=== PATIENT | female | born 1970 | race Caucasian/White ===

== ENCOUNTER 2016-10-20 05:10 | Inpatient (IN) | payer OTHER ==
[~2016-10-20] VITALS: Ht 165.1 cm; Wt 97.1 kg
[2016-10-20] MEDS ORDERED: ASPIRIN 81 MG CHEW PO STA (05:24)
[2016-10-20] MEDS: NITROGLYCERIN 0.4 MG SL PER TAB CHARGE SL PRN ×2 (05:32→05:43)
[2016-10-20 05:40] LABS: BASO % 0.3 %; BASO ABS # 0.02 K/uL (0-0.2); COMPLETE YES; EOS % 1.9 %; HEMATOCRIT 42.4 % (37-47); IG% 0.1 %; LYMPH % 24.6 %; LYMPH ABS # 1.82 K/uL (1.2-3.4); MEAN CELL VOLUME 88.5 fL (80-100); MEAN CORPUSCULAR HEMOGLOBIN 30.7 pg (25-34); MEAN CORPUSCULAR HGB CONC 34.7 g/dl (32-36); MEAN PLATELET VOLUME 9.9 fL (7.4-10.4); MONO % 8.8 %; NEUT % 64.3 %; PLATELET COUNT 247 K/uL (130-400); RED BLOOD COUNT 4.79 M/uL (4.2-5.4)
[2016-10-20] MEDS ORDERED: FLUT0.15 NAE (05:43)
[2016-10-20] MEDS ORDERED: VNTHFA/IN INH (05:44)
[2016-10-20] MEDS ORDERED: allergy shots INJ (05:45)
[2016-10-20] MEDS ORDERED: NIAC50TA9 PO (05:47)
[2016-10-20] MEDS ORDERED: CYAN1LOZ PO (05:47)
[2016-10-20] MEDS ORDERED: CHONCAP PO (05:49)
[2016-10-20] MEDS ORDERED: MONT1TAB3 PO (05:50)
[2016-10-20] MEDS ORDERED: FERR28TA2 PO (05:50)
[2016-10-20] MEDS ORDERED: ROPI1TAB PO (05:51)
[2016-10-20] MEDS ORDERED: CALC500C70 PO (05:52)
[2016-10-20] MEDS ORDERED: SODIUM CHLORIDE 0.9% 250ML 250 ML IV STA (05:54)
[2016-10-20 06:02] LABS: ALT/SGPT 25 U/L (12-78); AST/SGOT 11 U/L (15-37); BLOOD UREA NITROGEN 13 mg/dl (7-18); BUN/CREATININE RATIO 17.5 (10-20); CHLORIDE 108 mmol/L (98-107); CREATININE 0.73 mg/dl (0.60-1.20); GLUCOSE 111 mg/dl (70-99); POTASSIUM 3.9 mmol/L (3.5-5.1); SODIUM 143 mmol/L (136-145)
[2016-10-20 06:06] LABS: ALKALINE PHOSPHATASE 58 U/L (45-117); CARBON DIOXIDE 23 mmol/L (21-32)
--- NOTE | 2016-10-20 06:14 | EMERGENCY ROOM VISIT NOTE ---
History First contact with patient: 05:13 Chief Complaint: CHEST PAIN Stated Complaint: CHEST PAIN Nursing Triage Summary: Pt woke up at 3 am with left sided chest pain. Pt reports she has had intermittent chest pain for some time. History of Present Illness The patient is a 46 year old female who presents to the Emergency Room with complaints of left-sided chest pain described as aching, ranging in severity currently 4 out of 10 that woke her up out of sleep at 3 AM that is constant. This pain does not radiate. Walking up steps makes it worse. Patient states yesterday she had intermittent chest pain. Patient states many years ago she had a normal stress test. Patient denies fever, chills, cough, congestion, dyspnea, nausea, vomiting, diarrhea, diaphoresis, leg pain or swelling. Patient states she's extended the family history of heart disease. Patient denies diabetes, blood pressure, tobacco use, cholesterol. No recent travel. She does not smoke. Review of Systems See HPI for pertinent positives & negatives. A total of 10 systems reviewed and were otherwise negative. Past Medical/Surgical History Asthma Social History Smoking Status: Never Smoker Smokeless Tobacco Use: No Alcohol Use: none Drug Use: none Marital Status: Housing Status: lives with family Current/Historical Medications Scheduled Calcium/Vitamin D (Os-Jean-Pierre 500 Plus D), 1 TAB PO DAILY Chondroitin Sulfate-Vitamin C- (Chondroitin Sulfate), 1 CAP PO DAILY Cyanocobalamin (Vitamin B 12), Unknown Dose PO DIRECTED Ferrous Sulfate (Iron), 28 MG PO DAILY Fluticasone Propionate (Nasal) (Flonase Allergy Relief), 1 SPRAY NEAL DAILY Montelukast Sodium (Singulair), 10 MG PO DAILY Niacin (Niacin), Unknown Dose PO DAILY Ropinirole (Requip), Unknown Dose PO DIRECTED [allergy shots], 1 DOSE INJ MONTHLY Scheduled PRN Albuterol Hfa (Ventolin Hfa), 2 PUFFS INH DIRECTED PRN for SOB/Wheezing Allergies Coded Allergies: Iodine (Verified Allergy, Mild, Rash, 10/20/16) Uncoded Allergies: PENICILLIN (Allergy, Mild, Rash, 10/20/16) SULFA (Allergy, Mild, Rash, 10/20/16) Physical Exam Vital Signs Date Time Temp Pulse Resp B/P Pulse Ox O2 Delivery O2 Flow Rate FiO2 10/20/16 06:00 79 16 122/79 93 Room Air 10/20/16 05:53 77 16 103/56 93 Room Air 10/20/16 05:42 88 16 140/87 95 10/20/16 05:32 105 16 157/103 97 10/20/16 05:30 96 10/20/16 05:21 96 Room Air 10/20/16 05:21 96 Room Air 10/20/16 05:21 96 Room Air 10/20/16 05:12 37.0 93 16 171/98 97 Room Air Physical Exam VITALS: Vitals are noted on the nurse's note and reviewed by myself. Vital signs hypertensive GENERAL: Pleasant female, in no acute distress, nondiaphoretic, well-developed well-nourished. SKIN: The skin was without rashes, erythema, edema, or bruising. There is no tenting of the skin. Capillary reflex less than 2 seconds. HEAD: Normocephalic atraumatic. EARS: External auditory canals clear, tympanic membranes pearly mcdonough without erythema or effusion bilaterally. EYES: Pupils equal round and reactive to light and accommodation. Conjunctivae without injection, sclerae without icterus. Extraocular movements intact. NOSE: Patent, turbinates without inflammation or discharge. MOUTH: Mucous membranes moist. Pharynx without erythema or exudate. Uvula midline. Airway patent. Tongue does not deviate. NECK: Supple without nuchal rigidity. No lymphadenopathy. No thyromegaly. Cervical spine is nontender. No JVD. HEART: Regular rate and rhythm without murmurs gallops or rubs. Chest nontender to palpation LUNGS: Clear to auscultation bilaterally without wheezes, rales or rhonchi. No dullness to percussion. No retractions or accessory muscle use. ABDOMEN: Positive bowel sounds x 4. Normal tympanic percussion. Soft, nontender, without masses or organomegaly. Santamaria sign negative. No guarding or rebound tenderness. MUSCULOSKELETAL: No muscle atrophy, erythema, or edema noted. NEURO: Patient was alert and oriented to person place and time. Normal sensation to light and sharp touch. No focal neurological deficits. Medical Decision & Procedures Laboratory Results 10/20/16 05:25 Red Blood Count 4.79, Mean Corpuscular Volume 88.5, Mean Corpuscular Hemoglobin 30.7, Mean Corpuscular Hemoglobin Concent 34.7, Mean Platelet Volume 9.9, Neutrophils (%) (Auto) 64.3, Lymphocytes (%) (Auto) 24.6, Monocytes (%) (Auto) 8.8, Eosinophils (%) (Auto) 1.9, Basophils (%) (Auto) 0.3, Neutrophils # (Auto) 4.76, Lymphocytes # (Auto) 1.82, Monocytes # (Auto) 0.65, Eosinophils # (Auto) 0.14, Basophils # (Auto) 0.02 10/20/16 05:25 Test 10/20/16 05:25 10/20/16 05:30 White Blood Count 7.40 K/uL (4.8-10.8) Red Blood Count 4.79 M/uL (4.2-5.4) Hemoglobin 14.7 g/dL (12.0-16.0) Hematocrit 42.4 % (37-47) Mean Corpuscular Volume 88.5 fL (80-100) Mean Corpuscular Hemoglobin 30.7 pg (25-34) Mean Corpuscular Hemoglobin Concent 34.7 g/dl (32-36) Platelet Count 247 K/uL (130-400) Mean Platelet Volume 9.9 fL (7.4-10.4) Neutrophils (%) (Auto) 64.3 % Lymphocytes (%) (Auto) 24.6 % Monocytes (%) (Auto) 8.8 % Eosinophils (%) (Auto) 1.9 % Basophils (%) (Auto) 0.3 % Neutrophils # (Auto) 4.76 K/uL (1.4-6.5) Lymphocytes # (Auto) 1.82 K/uL (1.2-3.4) Monocytes # (Auto) 0.65 K/uL (0.11-0.59) Eosinophils # (Auto) 0.14 K/uL (0-0.5) Basophils # (Auto) 0.02 K/uL (0-0.2) RDW Standard Deviation 42.5 fL (36.4-46.3) RDW Coefficient of Variation 13.0 % (11.5-14.5) Immature Granulocyte % (Auto) 0.1 % Immature Granulocyte # (Auto) 0.01 K/uL (0.00-0.02) Anion Gap 12.0 mmol/L (3-11) Est Creatinine Clear Calc Drug Dose 108.7 ml/min Estimated GFR () 112.9 Estimated GFR (Non- 97.4 BUN/Creatinine Ratio 17.5 (10-20) Calcium Level 9.0 mg/dl (8.5-10.1) Total Bilirubin 0.2 mg/dl (0.2-1) Direct Bilirubin < 0.1 mg/dl (0-0.2) Aspartate Amino Transf (AST/SGOT) 11 U/L (15-37) Alanine Aminotransferase (ALT/SGPT) 25 U/L (12-78) Alkaline Phosphatase 58 U/L (45-117) Total Creatine Kinase 56 U/L (26-192) Creatine Kinase MB < 0.5 ng/ml (0.5-3.6) Creatine Kinase MB Ratio (0-3.0) Total Protein 7.5 gm/dl (6.4-8.2) Albumin 3.6 gm/dl (3.4-5.0) Lipase 129 U/L (73-393) Bedside Troponin I 0.000 ng/ml (0-0.045) Medications Administered Medications (Trade) Dose Ordered Sig/Whit Route Start Time Stop Time Status Last Admin Dose Admin Aspirin (Aspirin Chew) 324 mg NOW STAT PO 10/20/16 05:24 10/20/16 05:25 DC 10/20/16 05:31 324 MG Nitroglycerin 0.4 mg 0.4 mg Q5M PRN SL 10/20/16 05:30 11/19/16 05:29 10/20/16 05:43 0.4 MG Sodium Chloride (Nss 250ml) 250 ml @ 999 mls/hr Q16M STAT IV 10/20/16 05:54 10/20/16 06:09 DC 10/20/16 06:02 999 MLS/HR ED Course Prior records/ancillary studies reviewed. Triage Nursing notes reviewed. Additional history obtained from family. The patient's history was concerning for chest pain. Differential diagnosis: Etiologies such as cardiac ischemia, aortic dissection, pulmonary embolism, pneumonia, pneumothorax, musculoskeletal, infections, pericarditis, myocarditis , esophageal rupture, gastrointestinal, as well as others were entertained. Physical examination: As above. ER treatment provided: Aspirin, nitroglycerin On reassessment the patient felt better. Diagnostic interpretation by me: The electrocardiogram was normal sinus, normal intervals, ST depression in the anterolateral leads, no old EKG. Rate of 94. Impression normal sinus rhythm with ST depressions in the anterolateral leads interpreted by myself Repeat EKG after nitroglycerin and showed resolution of ST depression. The nitroglycerin did drop her blood pressure. She is given a fluid bolus. The labs revealed negative troponin. Stable H&H Imaging studies: Chest x-ray with no acute consolidation or pneumothorax or free air per my interpretation Consultation: A consultation was placed with the hospitalist, Dr. Jackson. The case was discussed and diagnostics were reviewed. The patient was evaluated in the ER for further treatment. Exam and history seem consistent with chest pain with risk factors for heart disease. Patient will be evaluated by medicine for possible admission. She had an abnormal EKG. No old one.By the evaluation outlined above emergent etiologies such as aortic dissection, pulmonary embolism, pneumonia, pneumothorax, infections, pericarditis, myocarditis, gastrointestinal, as well as others were deemed relatively unlikely. The pt informed about the findings as listed above. All questions were answered and pleased with the treatment. Case reviewed with my attending. Medical Decision As above Impression Primary Impression: Precordial chest pain Additional Impression: Abnormal EKG Departure Information Dispostion Being Evaluated By Hospitalist Condition FAIR Referrals Nuvia Harrison DO (PCP) Patient Instructions My [facility] Problem Qualifiers
--- NOTE | 2016-10-20 06:29 | History and Physical ---
History & Physical Date & Time of Service: Oct 20, 2016 at 06:28 Chief Complaint: Chest Pain Primary Care Physician: Nuvia Harrison DO History of Present Illness Source: patient, spouse This is a pleasant 46 year old female who presents with chest pain. The she describes her pain as a sharp left sided chest pain 5/10 that does not radiate into the jaw, back or arms. The pain was present all day yesterday. This morning, she was suddenly awoken by worsening of the pain. She did get nitroglycerine in the ED and notes that it has improved her pain. Current she is describing a low grade heaviness, rather than sharp pain which she had yesterday. Her chest pain has been going on for the past several months and she notes that it is getting more frequent. She does not get it when she is walking, but does describe the same sharp pain above when she climbs stairs. She denies shortness of breath, palpitations, dizziness, orthopnea, syncope, or lower extremity edema. She did have a stress test 18 years ago because of multiple uncles/aunts on her fathers side who of cardiac disease in their 30s. She is not smoker. She notes as I leave the room that her pain feels like it is somewhat worsening , without radiation to the jaw or arms. EKG was obtained. Past Medical/Surgical History Asthma Seasonal Allergies Restless Leg syndrome HTN associated with leg tremors Social History Smoking Status: Never Smoker Smokeless Tobacco Use: No Drug Use: none Marital Status: Allergies Coded Allergies: Shrimp (Verified Allergy, Intermediate, not listed, 10/20/16) Iodine (Verified Allergy, Mild, Rash, 10/20/16) Penicillin V (Verified Allergy, Unknown, RASH, 10/20/16) Sulfa Antibiotics (Verified Allergy, Unknown, RASH, 10/20/16) Home Medications Scheduled Calcium/Vitamin D (Os-Jean-Pierre 500 Plus D), 1 TAB PO DAILY Chondroitin Sulfate-Vitamin C- (Chondroitin Sulfate), 1 CAP PO DAILY Cyanocobalamin (Vitamin B 12), Unknown Dose PO DIRECTED Ferrous Sulfate (Iron), 28 MG PO DAILY Fluticasone Propionate (Nasal) (Flonase Allergy Relief), 1 SPRAY NEAL DAILY Montelukast Sodium (Singulair), 10 MG PO DAILY Niacin (Niacin), Unknown Dose PO DAILY Ropinirole (Requip), Unknown Dose PO DIRECTED [allergy shots], 1 DOSE INJ MONTHLY Scheduled PRN Albuterol Hfa (Ventolin Hfa), 2 PUFFS INH DIRECTED PRN for SOB/Wheezing Review of Systems A 10 point review of systems was negative unless stated above. Physical Exam Vital Signs Date Time Temp Pulse Resp B/P Pulse Ox O2 Delivery O2 Flow Rate FiO2 10/20/16 06:00 79 16 122/79 93 Room Air 10/20/16 05:53 77 16 103/56 93 Room Air 10/20/16 05:42 88 16 140/87 95 10/20/16 05:32 105 16 157/103 97 10/20/16 05:30 96 10/20/16 05:21 96 Room Air 10/20/16 05:21 96 Room Air 10/20/16 05:21 96 Room Air 10/20/16 05:12 37.0 93 16 171/98 97 Room Air General Appearance: WD/WN, no apparent distress Head: normocephalic, atraumatic Eyes: normal inspection, EOMI ENT: hearing grossly normal, pharynx normal Neck: supple, no adenopathy, no JVD Respiratory/Chest: lungs clear, no respiratory distress Cardiovascular: regular rate, rhythm, no gallop, no murmur Abdomen/GI: normal bowel sounds, non tender, soft Back: normal inspection, no CVA tenderness Extremities/Musculoskelatal: no calf tenderness, no pedal edema Neurologic/Psych: alert, normal mood/affect, oriented x 3 Skin: normal color, warm/dry, no rash Lymphatic: no adenopathy Diagnostics Laboratory Results Results Past 24 Hours Test 10/20/16 05:25 10/20/16 05:30 Range/Units White Blood Count 7.40 4.8-10.8 K/uL Red Blood Count 4.79 4.2-5.4 M/uL Hemoglobin 14.7 12.0-16.0 g/dL Hematocrit 42.4 37-47 % Mean Corpuscular Volume 88.5 80-100 fL Mean Corpuscular Hemoglobin 30.7 25-34 pg Mean Corpuscular Hemoglobin Concent 34.7 32-36 g/dl Platelet Count 247 130-400 K/uL Mean Platelet Volume 9.9 7.4-10.4 fL Neutrophils (%) (Auto) 64.3 % Lymphocytes (%) (Auto) 24.6 % Monocytes (%) (Auto) 8.8 % Eosinophils (%) (Auto) 1.9 % Basophils (%) (Auto) 0.3 % Neutrophils # (Auto) 4.76 1.4-6.5 K/uL Lymphocytes # (Auto) 1.82 1.2-3.4 K/uL Monocytes # (Auto) 0.65 0.11-0.59 K/uL Eosinophils # (Auto) 0.14 0-0.5 K/uL Basophils # (Auto) 0.02 0-0.2 K/uL RDW Standard Deviation 42.5 36.4-46.3 fL RDW Coefficient of Variation 13.0 11.5-14.5 % Immature Granulocyte % (Auto) 0.1 % Immature Granulocyte # (Auto) 0.01 0.00-0.02 K/uL Sodium Level 143 136-145 mmol/L Potassium Level 3.9 3.5-5.1 mmol/L Chloride Level 108 98-107 mmol/L Carbon Dioxide Level 23 21-32 mmol/L Anion Gap 12.0 3-11 mmol/L Blood Urea Nitrogen 13 7-18 mg/dl Creatinine 0.73 0.60-1.20 mg/dl Est Creatinine Clear Calc Drug Dose 108.7 ml/min Estimated GFR () 112.9 Estimated GFR (Non- 97.4 BUN/Creatinine Ratio 17.5 10-20 Random Glucose 111 70-99 mg/dl Calcium Level 9.0 8.5-10.1 mg/dl Total Bilirubin 0.2 0.2-1 mg/dl Direct Bilirubin < 0.1 0-0.2 mg/dl Aspartate Amino Transf (AST/SGOT) 11 15-37 U/L Alanine Aminotransferase (ALT/SGPT) 25 12-78 U/L Alkaline Phosphatase 58 45-117 U/L Total Creatine Kinase 56 26-192 U/L Creatine Kinase MB < 0.5 0.5-3.6 ng/ml Creatine Kinase MB Ratio 0-3.0 Total Protein 7.5 6.4-8.2 gm/dl Albumin 3.6 3.4-5.0 gm/dl Lipase 129 73-393 U/L Bedside Troponin I 0.000 0-0.045 ng/ml CXR normal EKG EKG on arrival NSR, Rate 94, ST depression in lateral leads V3-V6, T wave inversion in III EKG post-nitro NSR, Rate 71, Lateral ST depressions in V3-V6, T wave inversion in III persists EKG with resumption of chest discomfort NSR, Rate 72, No ST depression in lateral leads, mild ST depression in V2, persistent T wave inversion in III Impression Assessment and Plan 46 year old female with chest pain, consistent with unstable angina at this time. She has symptoms consistent with angina given that the pain is exertional with stairs, and improved in the ED with nitroglycerine. The troponin are negative at this time but she may well have NSTEMI but needs cardiac enzymes are negative thus far. Our plan for her is as follows: Unstable Angina - Anterolateral ST depression on EKG that improves with S.L. Nitroglycerine - Cardiac enzymes negative x 1, trend enzymes q 6 hours - Family history positive for paternal uncles/aunts for premature CAD - ASA 324 given in the ED and Nitroglycerine S.L. - EKG with chest pain; Nitroglycerin with chest pain - Echocardiogram ordered - Lipid profile with AM labs - IV Heparin drip started in ED as patient reports that chest pain was starting to come back - Consult cardiology for further recommendations on evaluation and secondary medications Have held off on beta aleksander at this time as patient BP did seem to drop markedly with S.L nitroglycerine - Start Beta aleksander and ACEi within 24 hours if tolerated Restless Leg Syndrome - Continue Requip Asthma - Continue Flovent - Continue Montelukast Seasonal Allergies - Flonase DVT prophylaxis - Heparin Drip - SCD - TEDs Code Status - Level I Full Code - 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 - Patient is a Jehova's witness and does not want blood products Disposition - Telemetry Level of Care Telemetry Resuscitation Status FULL RESUSCITATION VTE Prophylaxis Given or contraindicated: Other Anticoagulation (Heparin IV drip) Assessment and Plan Attending Addendum: I have physically seen and examined this patient, have directed their medical care, have supervised the medical residents activities, and agree with the H&P as noted above, with the following changes: NONE The patient is awake, well-developed and adequately nourished, alert and oriented 3, normocephalic and atraumatic, lying in bed and in no acute distress. HEENT--PERRL, EOMI, mucous membranes and oropharynx dry. Neck--supple, no JVD or bruits, thyroid normal, trachea midline, no adenopathy. Heart--normal S1 and S2, no extra beats, no murmurs, rubs or gallops. Lungs--clear bilaterally with good air movement, no respiratory distress, no accessory muscle use. Abdomen--normal bowel sounds and soft, nontender and nondistended, no hernias or masses, no organomegaly. Extremities--no cyanosis, clubbing or edema. There are good distal pulses b/l. Dermatologic--normal skin turgor, normal color, warm and dry, no abnormal lymph nodes, no rash. Neurologic--cranial nerves II through XII grossly intact, motor and sensory examination normal. Rheumatologic--normal range of motion, nontender, muscles and joints. Psychiatric--normal affect. Assessment and Plan: Unstable angina--patient describes symptoms initially began a few months ago that occurred on a weekly basis and then more recently have become more frequent and more intense present on daily basis. She did have reversible lateral chest leads improved with sublingual nitroglycerin. She'll be started on heparin drip, admitted to the PCU for serial cardiac enzymes, cardiac rhythm monitoring 2-D echocardiogram with Dopplers. We'll consult cardiology in the a.m. Continue aspirin. Restless leg syndrome--continue Requip. Asthma--continue current dosing of Flovent and montelukast. Seasonal allergies--continue Flonase nasal spray.
[2016-10-20] MEDS ORDERED: ALUMINUM/MAGNESIUM/SIMETH (MAALOX MAX) 30 ML UDC PO PRN (06:30)
[2016-10-20] MEDS ORDERED: MAGNESIUM HYDROXIDE SUSP 30 ML UDC PO PRN (06:30)
[2016-10-20] MEDS ORDERED: ACETAMINOPHEN 325 MG TAB PO PRN (06:30)
[2016-10-20] MEDS ORDERED: NITROGLYCERIN 0.4 MG SL PER TAB CHARGE SL PRN (06:30)
[2016-10-20] MEDS ORDERED: ONDANSETRON INJ 2 MG/ML 2 ML VIAL IV PRN (06:30)
[2016-10-20] MEDS ORDERED: POLYETHYLENE (MIRALAX) 17 GM PACK PO PRN (06:30)
[2016-10-20] MEDS ORDERED: ENOXAPARIN 40 MG/0.4 ML SYR SC SCH (06:30)
--- NOTE | 2016-10-20 06:31 | DIAGNOSTIC IMAGING REPORT ---
CHEST ONE VIEW PORTABLE CLINICAL HISTORY: Chest pain. COMPARISON STUDY: No previous studies for comparison. FINDINGS: Lung volumes are normal. Lungs are clear. There is no evidence of pulmonary edema. No pneumothorax or pleural effusion is present. Cardiomediastinal silhouette is normal. IMPRESSION: No acute cardiopulmonary findings. Electronically signed by: Reilly Loya M.D. 10/20/2016 6:30 AM Dictated Date/Time: 10/20/2016 6:29 AM
[2016-10-20] MEDS ORDERED: ALBUTEROL HFA 8 GM INHALER INH PRN (06:45)
[2016-10-20] MEDS ORDERED: [UNRECOGNIZED DRUG - REMARK] INJ SCH (06:45)
[2016-10-20] MEDS ORDERED: HEPARIN 25000 UNIT/500 ML D5W ONE (06:54)
[2016-10-20] MEDS ORDERED: HEPARIN SOD 5000 UNIT/0.5 ML CARP ONE (06:54)
[2016-10-20 07:00] VITALS: O2SAT 97; Ht 165.1 cm; Wt 97.1 kg
[2016-10-20 08:00] VITALS: BP 151/86; PULSE 97; TEMP 36.6; O2SAT 95
[2016-10-20] MEDS ORDERED: [UNRECOGNIZED DRUG - OTHER] PO SCH (09:00)
[2016-10-20] MEDS ORDERED: CALCIUM 600MG + VIT D 400 IU TAB PO SCH (09:00)
[2016-10-20] MEDS ORDERED: FLUTICASONE PROPIONATE NA SPR 16 GM BTL NAE SCH (09:00)
[2016-10-20] MEDS ORDERED: FERROUS SULFATE 325 MG TAB PO SCH (09:30)
[2016-10-20 10:40] VITALS: O2SAT 97
[2016-10-20 11:34] VITALS: BP 142/93; PULSE 86; TEMP 36.6; O2SAT 94
[2016-10-20] MEDS ORDERED: NURSING VERBAL MED ORDER ONE (12:00)
--- NOTE | 2016-10-20 12:56 | CARDIOLOGY CONSULTATION ---
DATE OF CONSULTATION: 10/20/2016 TIME: 12:13 p.m. CONSULTING PHYSICIAN: Dr. Sky. REASON FOR CONSULTATION: Chest pain. HISTORY OF PRESENT ILLNESS: Mrs. Ruiz is a pleasant 46-year-old female with a history significant for asthma. She presented to [facility] with chest pain. For the past few months, she has been having intermittent chest discomfort. It does not occur with exertion but sometimes after exertion such as climbing the stairs. She also notices dyspnea with exertion while climbing stairs and doing other strenuous activities. The chest discomfort was described as a sharp sensation on the left side of her chest near the left sternal border. This sharp chest pain would resolve spontaneously within a few minutes. Yesterday, she had this chest discomfort all day without resolution. The intensity waxed and waned, but the pain did not resolve. It actually felt better with exertion. After she fell asleep, she was awakened at 3:00 a.m. with this chest discomfort once again. It was a sharp pain. Because of her continued symptoms, she came to the Emergency Department for evaluation. She was given nitroglycerin. She states that there was no improvement in her symptoms from. Nitroglycerin. She later was given some aspirin and she believes that she eventually felt better after that. Since then, she has had some sensation on the left side of her chest and notices that it is painful when people applied pressure area such as when she had her echocardiogram done. This is the same focal area that she had chest pain yesterday. She denies syncope, near syncope, orthopnea, PND, edema. She has had palpitations for many years and was told that she had ectopy in the past. She cannot recall the last time that she actually had palpitations. They are not a bother to her. She has been evaluated for a rash. She has been having issues with rash for a few months. She was told by other physicians that it is secondary to an allergic reaction. She states that she is allergic to many things. She denies a history of diabetes, hypertension and dyslipidemia. She denies a family history of premature CAD in first degree relatives; however, there is premature CAD in extended family members. REVIEW OF SYSTEMS: As above. Otherwise, review of systems negative. PAST MEDICAL HISTORY: 1. Asthma. 2. Neuropathy. HOME MEDICATIONS: Include: 1. Calcium with Vitamin D. 2. Vitamin B12. 3. Ferrous sulfate. 4. Singulair. 5. Niacin. 6. Requip. 7. Allergy shot. 8. Albuterol as needed. HOSPITAL MEDICATIONS: Include aspirin 325 mg earlier this morning and Singulair. ALLERGIES: 1. IODINE. She states that she did tolerate IV contrast in the past; however. 2. PENICILLIN. 3. SULFA DRUGS. SOCIAL HISTORY: Denies tobacco, alcohol or drug abuse. She is and lives with her . No children. 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 She is unaccompanied currently. FAMILY HISTORY: No known premature CAD in first degree relatives. She has paternal aunts and uncles that in her 30s and 40s secondary to myocardial infarction. PHYSICAL EXAMINATION: VITAL SIGNS: Temperature 36.6 degrees, heart rate 86 beats per minute, respiration rate 18, blood pressure 142/93 mmHg; however, she has also been normotensive intermittently; oxygen saturation 94% on room air. Weight 97.1 kg. GENERAL: No acute distress. She is alert. HEENT: Anicteric sclerae. NECK: No appreciable JVD. No bruits. Normal carotid upstrokes bilaterally. CARDIAC: PMI was nonpalpable. There was no ventricular heave. Regular, normal S1, S2. No murmurs, rubs, or gallops were auscultated. LUNGS: Clear to auscultation bilaterally without wheezes, rales or rhonchi. ABDOMEN: Soft, nontender, nondistended, normoactive bowel sounds, no bruits noted. EXTREMITIES: No cyanosis or pitting edema. 2+ radial pulses bilaterally. 1+ dorsalis pedis pulses bilaterally. No cyanosis. No palpable cords. PSYCHIATRIC: Affect appears appropriate. CHEST: Tender to palpation along the left sternal border in a focal area near the 4th or 5th rib. This is the same location of her pain described above with similar characteristics. DATA: Telemetry personally reviewed. No arrhythmias. LABORATORY DATA: Sodium 143, potassium 3.9, BUN 13, creatinine 0.73. Troponin 0 x1. CK-MB undetectable. Albumin 3.6, lipase 129. WBC 7.4, hemoglobin 14.7, platelets 247. PTT 26.5. IMAGING DATA: Chest x-ray image personally reviewed. No infiltrate. No evidence of CHF. Radiology has interpreted this as no acute cardiopulmonary findings. ECGs personally reviewed. ECG upon presentation demonstrated sinus rhythm at 94 beats per minute. Nonspecific ST/T wave abnormality. Repeat ECG at 6:46 a.m. demonstrated sinus rhythm with short SD, 72 beats per minute. Nonspecific T-wave abnormality. Echocardiogram images were personally reviewed. This is a preliminary review as the echo had not yet been processed. Echo performed 10/20/2016 demonstrated normal left ventricular size and systolic function. No regional wall motion abnormalities were visualized. There was trace to mild mitral regurgitation. Otherwise, no significant valvular abnormalities. Full report to follow. ASSESSMENT AND PLAN: 1. Chest pain: Atypical chest pain in the sense that she had chest pain all day yesterday with negative cardiac enzymes. To ensure that today's episodes not ischemic in origin, a second troponin is pending. If unremarkable, would recommend stress testing in the form of a stress echo. Her prolonged episode of chest discomfort would expect elevated cardiac markers, if it was related to ischemic heart disease. The fact that her chest pain is reproducible, suggest possible musculoskeletal origin. If stress echo unremarkable, further evaluation as per hospitalist service. 2. Mitral regurgitation: Nonsevere. It appeared to be trace or mild at most on transthoracic echo. A full formal review will be done later today. 3. Abnormal ECG: Nonspecific ST-T wave abnormalities on initial ECG. These are nonspecific. Stress echo to further evaluate symptoms as above. 5. Dyspnea with exertion: She does have dyspnea with exertion while climbing stairs: Stress echo as above. 6. Disposition: If stress echo is unremarkable, would not perform any further ischemic evaluation at this time. We did discuss other means of ischemic evaluation such as cardiac catheterization, but given the fact that her symptoms are atypical, long lasting, and without cardiac enzymes, as long as the next troponin is unremarkable, symptoms would suggest other etiology for her chest pain rather than ischemic heart disease. Thank for allowing me to participate in the care of Ms. Ruiz.
[2016-10-20 13:33] LABS: PARTIAL THROMBOPLASTIN RATIO 1.9
[2016-10-20 13:41] LABS: CKMB/CK RATIO 1.7 (0-3.0)
[2016-10-20 15:18] VITALS: BP 145/90; PULSE 116; TEMP 36.6; O2SAT 96
[2016-10-20] MEDS ORDERED: HEPARIN 25,000 UNIT/500ML D5W 500 ML IV PRN (15:45)
[2016-10-20] MEDS ORDERED: HEPARIN IV BOLUS 5,000 UNIT in SYRINGE 0 ML IV ONE (16:00)
--- NOTE | 2016-10-20 16:36 | Discharge Instructions ---
Discharge Instructions Admission Reason for Admission: Acute Electrocardiogram Changes, Unstable Angina Discharge Discharge Diagnosis / Problem: Unstable angina Discharge Goals Goal(s): Decrease discomfort, Improve function, Increase independence, Improve disease control, Diagnostic testing, Therapeutic intervention Activity Recommendations Activity Limitations: resume your previous activity Exercise/Sports Limitations: none Shower/Bathe: no limitations . Instructions / Follow-Up Instructions / Follow-Up Patient to be discharged home Stress test unremarkable No changes in medications If worsening chest pain or shortness of breath please report to ER Current Hospital Diet Patient's current hospital diet: Regular Diet Discharge Diet Recommended Diet: Regular Diet Pending Studies Studies pending at discharge: no Medical Emergencies . Who to Call and When: Medical Emergencies: If at any time you feel your situation is an emergency, please call 911 immediately. . Non-Emergent Contact Non-Emergency issues call your: Primary Care Provider Call Non-Emergent contact if: you have a fever, your pain is worsening . . "Provider Documentation" section prepared by Tom Lopez. VTE Core Measure Inpt VTE Proph given/why not?: Other Anticoagulation (Heparin IV drip)
--- NOTE | 2016-10-20 16:40 | Discharge Summary ---
Discharge Summary Date of Service Oct 20, 2016. Discharge Summary Admission Date: Oct 20, 2016 at 06:58 Discharge Date: Oct 20, 2016 Discharge Disposition: Home Principal Diagnosis: chest pain Consultations: Cardiology Medication Reconciliation Continued Medications: Albuterol Hfa (Ventolin Hfa) 200 Puffs/54956 Mcg Aers 2 PUFFS INH DIRECTED PRN for SOB/Wheezing, #1 INHALER Calcium/Vitamin D (Os-Jean-Pierre 500 Plus D) Tab 1 TAB PO DAILY, TAB Chondroitin Sulfate-Vitamin C- (Chondroitin Sulfate) 1 Cap Cap 1 CAP PO DAILY Cyanocobalamin (Vitamin B 12) Unknown Strength Perez Unknown Dose PO DIRECTED Ferrous Sulfate (Iron) 28 Mg Tab 28 MG PO DAILY Fluticasone Propionate (Nasal) (Flonase Allergy Relief) 50 Mcg/Act Spr 1 SPRAY NEAL DAILY Montelukast Sodium (Singulair) 10 Mg Tab 10 MG PO DAILY, TAB Niacin (Niacin) Unknown Strength Tab Unknown Dose PO DAILY, TAB Ropinirole (Requip) Unknown Strength Tab Unknown Dose PO DIRECTED, TAB [allergy shots] () 1 DOSE INJ MONTHLY pt states takes own allergy shots the 1st of the month Discharge Exam Review of Systems: Constitutional: No chills, No fever Respiratory: No cough, No shortness of breath, No sputum, No wheezing Cardiovascular: No chest pain, No orthopnea Abdomen: No diarrhea, No nausea, No pain, No vomiting Musculoskeletal: No joint pain, No muscle pain Genitourinary - Female: No dysuria, No urinary frequency, No urinary urgency Physical Exam: General Appearance: WD/WN, no apparent distress Neck: supple, no adenopathy Respiratory/Chest: chest non-tender, lungs clear, normal breath sounds Cardiovascular: regular rate, rhythm, no edema, no gallop Abdomen / GI: non tender, soft Neurologic/Psychiatric: alert, oriented x 3 Hospital Course 46 year old female with chest pain, consistent with unstable angina at this time. She has symptoms consistent with angina given that the pain is exertional with stairs, and improved in the ED with nitroglycerine. Unstable Angina - Anterolateral ST depression on EKG that improves with S.L. Nitroglycerine - Cardiac enzymes negative x 3 - Family history positive for paternal uncles/aunts for premature CAD - ASA 324 given in the ED and Nitroglycerine S.L. 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 Discharge Instructions Please refer to the electronic Patient Visit Report (Discharge Instructions) for additional information. Additional Copies To Nuvia Harrison, DO
[2016-10-20 16:50] VITALS: BP 145/90; PULSE 116; TEMP 36.6; O2SAT 96
--- NOTE | 2016-10-20 17:55 | EXERCISE STRESS ECHO ---
*NOTICE TO RECEIVING REPUBLICAN AGENCY This information is strictly Confidential and protected under [place] law. [place] law prohibits you from making any further disclosure of this information unless further disclosure is expressly permitted by the written consent of the person to whom it pertains or is authorized by law. A general authorization for the release of medical or other information is not sufficient for this purpose. Hospital accepts no responsibility if the information is made available to any other person, INCLUDING THE PATIENT. Interpretation Summary * Conclusions -- * Stress Echo: * 1. Negative stress echo for ischemia at 104% MPHR. * 2. Negative exercise ECG for ischemia at 104% MPHR. * 3. No chest pain reported. * 4. Mildly hypertensive response to exercise. * 5. No arrhythmia. * 6. Fair exercise tolerance. * ECHO: * 1. Normal left ventricular size and systolic function. EF 60-65%. No regional wall motion abnormalities. No left ventricular hypertrophy. No significant diastolic dysfunction. * 2. Trace mitral regurgitation. * 3. No prior study available for comparison. Procedure Details * ECHOEX, CPT #[id number] * ECHO COLOR FLOW, CPT #[id number] * ECHO DOPPLER, CPT #[id number] Left Ventricular Findings with Stress * Name: VALERIE VICTOR Study Date: 10/20/2016 09:26 AM BP: 125/95 mmHg Patient Location: [facility]\S\1 HR: 87 : 1970 (M/d/yyyy) Gender: Female Height: 65 in Age: 46 yrs Ethnicity: [place] Weight: 214 lb Ordering Physician: Emeterio Sky Referring Physician: Self, Referred Performed By: Jennifer White [facility] Reason For Study: CHEST PAIN BSA: 2.0 m2 Left Ventricle * The left ventricle is normal in size. * There is normal left ventricular wall thickness. * Left ventricular systolic function is normal. * Resting wall motion: Normal. Stress wall motion: Appropriate increase in Left ventricular systolic function and decrease in cavity size. No stress induced segmental wall motion abnormalities. * The left ventricular ejection fraction increases normally with stress. The left ventricular end-systolic cavity size reduces post-stress (normal response). The left ventricular wall motion with stress is normal. Right Ventricle * The right ventricle is normal in size and function. * The right ventricular systolic function is normal as assessed by tricuspid annular plane systolic excursion (TAPSE) (normal >1.5 cm). Atria * The left atrium is borderline dilated. * Right atrial size is normal. * There is no evidence of atrial septal defect, but resolution does not allow assessment for a patent foramen ovale. Mitral Valve * The mitral valve is normal in structure and function. * There is no mitral valve stenosis. * There is trace mitral regurgitation. Tricuspid Valve * The tricuspid valve is not well visualized, but is grossly normal. * There is no tricuspid stenosis. * Significant tricuspid regurgitation is absent. Aortic Valve * The aortic valve is normal in structure and function. * The aortic valve is trileaflet. * No hemodynamically significant valvular aortic stenosis. * No aortic regurgitation is present. Pulmonic Valve * The pulmonary valve is inadequately visualized, but the Doppler data is adequate for interpretation. * There is no significant pulmonary regurgitation. Great Vessels * The aortic root is normal size. * Ascending aorta of normal dimension * Normal IVC size and inspiratory collapse. Pericardium * There is no pericardial effusion. Stress Parameters * NSR at [address] abnormality. * Stress ECG: No ST changes. No arrhythmias. * No arrhythmia were noted with stress. * The stress portion of this study was personally supervised by the undersigned interpreting physician. * Rest heart rate was '87' BPM. * Rest blood pressure was '150/81' * Maximum heart rate achieved was 179 bpm. * Maximum heart rate was 104 % of maximum age-predicted heart rate. * Maximum blood pressure was '200/62' * Total exercise time was '6:42' * Maximum exercise MET level achieved was '8.1' METS * Maximum treadmill speed was '3.3' miles per hour. * Maximum treadmill elevation was '14'% grade. * Exercise was terminated due to 'fatigue' Left Ventricular Findings with Stress * A complete two-dimensional transthoracic echocardiogram was performed (2D, M-mode, Doppler and color flow Doppler). MMode 2D Measurements and Calculations IVSd 1.0 cm IVSs 1.4 cm LVIDd 4.6 cm LVIDs 2.9 cm LVPWd 0.86 cm LVPWs 1.2 cm IVS/LVPW 1.2 FS 36.9 % EDV(Teich) 97.9 ml ESV(Teich) 32.4 ml EF(Teich) 66.9 % EDV(cubed) 98.1 ml ESV(cubed) 24.6 ml EF(cubed) 74.9 % % IVS thick 38.9 % % LVPW thick 41.3 % LV mass(C)d 146.7 grams LV mass(C)dI 72.1 grams/m\S\2 LV mass(C)s 121.7 grams LV mass(C)sI 59.8 grams/m\S\2 SV(Teich) 65.5 ml SI(Teich) 32.2 ml/m\S\2 SV(cubed) 73.5 ml SI(cubed) 36.1 ml/m\S\2 Ao root diam 2.6 cm Ao root area 5.5 cm\S\2 ACS 1.9 cm LA dimension 4.2 cm asc Aorta Diam 2.4 cm LA/Ao 1.6 LVOT diam 2.0 cm LVOT area 3.1 cm\S\2 Doppler Measurements and Calculations MV E max beatrice 85.4 cm/sec MV A max beatrice 52.4 cm/sec MV E/A 1.6 MV P1/2t max beatrice 105.7 cm/sec MV P1/2t 45.0 msec MVA(P1/2t) 4.9 cm\S\2 MV dec slope 688.4 cm/sec\S\2 MV dec time 0.21 sec Ao V2 max 146.4 cm/sec Ao max PG 8.6 mmHg Ao max PG (full) 5.2 mmHg YOLIS(V,A) 1.9 cm\S\2 YOLIS(V,D) 1.9 cm\S\2 LV V1 max PG 3.4 mmHg LV V1 max 91.7 cm/sec TV E max beatrice 50.9 cm/sec PA V2 max 122.2 cm/sec PA max PG 6.0 mmHg RAP systole 3.0 mmHg
[2016-10-20] MEDS ORDERED: MONTELUKAST SOD 10 MG TAB PO SCH (21:00)
== END 2016-10-20 17:40 | disposition home or self-care (01) | DRG 313 ==
LOC: ENRESERVTM → ENRESERVDT → C.EDB 05:11 → C.MED 06:58
PROVIDERS: ADMIT Student in an Organized Health Care Education/Training Program; ATTEND Hospitalist
DX: R07.89 Other chest pain (principal); R94.31 Abnormal electrocardiogram [ECG] [EKG]; I34.0 Nonrheumatic mitral (valve) insufficiency; R06.00 Dyspnea, unspecified; I10 Essential (primary) hypertension; G25.81 Restless legs syndrome; R25.1 Tremor, unspecified; J45.909 Unspecified asthma, uncomplicated; Z82.49 Family history of ischemic heart disease and other diseases of the circulatory system; Z79.899 Other long term (current) drug therapy

== ENCOUNTER → 2016-12-26 | Outpatient (CLI) | payer OTHER ==
[~2016-12-26] MED LIST: CALC500C70 PO; CHONCAP PO; CYAN1LOZ PO; FERR28TA2 PO; FLUT0.15 NAE; MONT1TAB3 PO; NIAC50TA9 PO; ROPI1TAB PO; VNTHFA/IN INH; allergy shots INJ
== END | disposition home or self-care (01) ==
LOC: C.PAPS 12:13
PROVIDERS: ATTEND Nurse Practitioner Adult Health
DX: Z12.4 Encounter for screening for malignant neoplasm of cervix (principal)

== ENCOUNTER → 2017-04-28 | Outpatient (CLI) | payer OTHER ==
[2017-04-28 17:50] LABS: URINE APPEARANCE CLOUDY (CLEAR); URINE BILIRUBIN NEG (NEG); URINE COLOR YELLOW; URINE EPITHELIAL CELL AUTO >30 /lpf (0-5); URINE NITRITE POS (NEG); URINE SPECIFIC GRAVITY 1.015 (1.000-1.030); UROBILINOGEN NEG (NEG)
[2017-04-28 18:00] LABS: MANUAL MICROSCOPIC REQUIRED? NO; REVIEW REQ? YES
== END | disposition home or self-care (01) ==
LOC: C.LABSPEC 12:53
PROVIDERS: ATTEND Family Medicine
DX: R30.0 Dysuria (principal)

== ENCOUNTER → 2017-05-05 | Outpatient (CLI) | payer OTHER ==
[2017-05-05 12:52] LABS: URINE APPEARANCE CLEAR (CLEAR); URINE BILIRUBIN NEG (NEG); URINE COLOR YELLOW; URINE NITRITE NEG (NEG); URINE SPECIFIC GRAVITY 1.025 (1.000-1.030); UROBILINOGEN NEG (NEG)
[2017-05-05 13:10] LABS: MANUAL MICROSCOPIC REQUIRED? NO; REVIEW REQ? NO
== END | disposition home or self-care (01) ==
LOC: C.LABPBG 08:29
PROVIDERS: ATTEND Family Medicine
DX: R30.0 Dysuria (principal)

== ENCOUNTER → 2017-07-03 | Outpatient (CLI) | payer OTHER ==
[2017-07-03 12:20] LABS: HEMATOCRIT 42.7 % (37-47); LYMPH % 28.8 %; MEAN CELL VOLUME 92.4 fL (80-100); MEAN CORPUSCULAR HEMOGLOBIN 30.5 pg (25-34); MEAN PLATELET VOLUME 10.6 fL (7.4-10.4); NEUT % 62.2 %; PLATELET COUNT 278 K/uL (130-400); RED BLOOD COUNT 4.62 M/uL (4.2-5.4); WHITE BLOOD COUNT 6.38 K/uL (4.8-10.8)
[2017-07-03 12:21] LABS: BASO % 0.3 %; BASO ABS # 0.02 K/uL (0-0.2); COMPLETE YES; EOS % 2.5 %; IG% 0.2 %; LYMPH ABS # 1.84 K/uL (1.2-3.4)
[2017-07-03 12:37] LABS: ESTIMATED AVERAGE GLUCOSE 120 mg/dl; HA1C FLAG Normal (Normal)
[2017-07-03 12:56] LABS: ALT/SGPT 27 U/L (12-78); AST/SGOT 15 U/L (15-37); BLOOD UREA NITROGEN 13 mg/dl (7-18); BUN/CREATININE RATIO 18.6 (10-20); CALCIUM 8.4 mg/dl (8.5-10.1); CARBON DIOXIDE 27 mmol/L (21-32); CHLORIDE 106 mmol/L (98-107); GLUCOSE 114 mg/dl (70-99); HDL CHOLESTEROL 50 mg/dl; POTASSIUM 3.8 mmol/L (3.5-5.1); SODIUM 141 mmol/L (136-145); TRIGLYCERIDES 162 mg/dl (0-150); VERY LOW DENSITY LIPOPROT CALC 32 mg/dl
[2017-07-03 13:00] LABS: ALB/GLOB RATIO 0.9 (0.9-2); ALKALINE PHOSPHATASE 58 U/L (45-117); CHOLESTEROL 184 mg/dl (0-200); CHOLESTEROL/HDL RATIO 3.7; LDL CHOLESTEROL CALCULATED 102 mg/dl
== END | disposition home or self-care (01) ==
LOC: C.LABPBG 08:23
PROVIDERS: ATTEND Physician Assistant
DX: E53.8 Deficiency of other specified B group vitamins (principal); R73.03 Prediabetes; E78.1 Pure hyperglyceridemia; E55.9 Vitamin D deficiency, unspecified

== ENCOUNTER → 2017-11-22 | Outpatient (CLI) | payer OTHER | END | disposition home or self-care (01) | LOC: C.LABPBG 08:31 | PROVIDERS: ATTEND Physician Assistant | DX: E55.9 Vitamin D deficiency, unspecified (principal) ==

== ENCOUNTER → 2018-04-13 | Outpatient (CLI) | payer OTHER ==
[2018-04-13 13:18] LABS: BASO % 0.1 %; BASO ABS # 0.01 K/uL (0-0.2); EOS % 1.6 %; EOS ABS # 0.12 K/uL (0-0.5); HEMATOCRIT 43.2 % (37-47); HEMOGLOBIN 14.5 g/dL (12.0-16.0); IG# 0.01 K/uL (0.00-0.02); LYMPH % 25.5 %; LYMPH ABS # 1.88 K/uL (1.2-3.4); MEAN CELL VOLUME 91.3 fL (80-100); MEAN CORPUSCULAR HEMOGLOBIN 30.7 pg (25-34); MEAN CORPUSCULAR HGB CONC 33.6 g/dl (32-36); MONO % 6.4 %; MONO ABS # 0.47 K/uL (0.11-0.59); NEUT % 66.3 %; NEUT ABS # 4.89 K/uL (1.4-6.5); PLATELET COUNT 275 K/uL (130-400); RED CELL DISTRIBUTION WIDTH CV 13.3 % (11.5-14.5); RED CELL DISTRIBUTION WIDTH SD 44.3 fL (36.4-46.3); WHITE BLOOD COUNT 7.38 K/uL (4.8-10.8)
[2018-04-13 13:23] LABS: HEMOGLOBIN A1C 6.1 % (4.5-5.6)
[2018-04-13 13:44] LABS: BLOOD UREA NITROGEN 10 mg/dl (7-18); CALCIUM 8.4 mg/dl (8.5-10.1); CARBON DIOXIDE 25 mmol/L (21-32); CHOLESTEROL 147 mg/dl (0-200); CREATININE 0.68 mg/dl (0.60-1.20); GLUCOSE 119 mg/dl (70-99); LDL CHOLESTEROL CALCULATED 86 mg/dl; POTASSIUM 4.1 mmol/L (3.5-5.1); SODIUM 138 mmol/L (136-145)
== END | disposition home or self-care (01) ==
LOC: C.LABPBG 10:42
PROVIDERS: ATTEND Family Medicine
DX: E55.9 Vitamin D deficiency, unspecified (principal); G25.81 Restless legs syndrome; E78.1 Pure hyperglyceridemia; R73.03 Prediabetes

== ENCOUNTER → 2018-04-20 | Outpatient (CLI) | payer OTHER | END | disposition home or self-care (01) | LOC: C.LABPBG 09:47 | PROVIDERS: ATTEND Family Medicine | DX: R53.83 Other fatigue (principal); M25.50 Pain in unspecified joint ==